=== PATIENT | female | born 1995 | race Caucasian/White ===

== ENCOUNTER 2018-01-31 16:09 | Outpatient (CLI) | payer OTHER | END 2018-01-31 16:10 | disposition home or self-care (01) | LOC: BICRAD 16:09 | PROVIDERS: ATTEND Chiropractor Sports Physician | DX: M54.5 Low back pain (principal); M41.9 Scoliosis, unspecified; M25.512 Pain in left shoulder; G89.29 Other chronic pain | CPT/HCPCS: 72081 ==

== ENCOUNTER 2018-07-31 14:40 | Outpatient (CLI) | payer OTHER | END 2018-07-31 14:41 | disposition home or self-care (01) | LOC: BICRAD 14:40 | PROVIDERS: ATTEND Chiropractor Sports Physician | DX: M25.512 Pain in left shoulder (principal) ==